=== PATIENT | female | born 1970 | race Caucasian/White ===

== ENCOUNTER 2022-08-28 21:01 | Emergency (ER) | payer OTHER, SELFPAY ==
[2022-08-28 21:07] VITALS: BP 181/96; PULSE 78; RESP 20; TEMP 36.6; O2SAT 97; BMI 39.8
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
--- NOTE | 2022-08-28 22:54 | DI.RAD.S_ITS ---
PROCEDURE: XR ELBOW RT MIN 3V INDICATIONS: Pain and can not straighten after fall TECHNIQUE: 3 views of the elbow were acquired. COMPARISON: None. FINDINGS: Bones: No fractures or dislocations. No suspicious bony lesions. Soft tissues: There is a moderate elbow joint effusion. No suspicious soft tissue calcifications. IMPRESSION: 1. No displaced fracture or dislocation. 2. Moderate joint effusion suspicious for an occult fracture. Dictated by: Kodi Meza M.D. on 08/29/2022 at 0:46 Approved by: Kodi Meza M.D. on 08/29/2022 at 0:47
--- NOTE | 2022-08-28 22:54 | DI.RAD.S_ITS ---
PROCEDURE: XR ELBOW LT MIN 3V INDICATIONS: Pain and can not straighten after fall TECHNIQUE: 3 views of the elbow were acquired. COMPARISON: None. FINDINGS: Bones: No displaced fractures or dislocations. No suspicious bony lesions. Soft tissues: There is a moderate elbow joint effusion. No suspicious soft tissue calcifications. IMPRESSION: 1. Moderate joint effusion suspicious for an occult fracture. Dictated by: Kodi Meza M.D. on 08/29/2022 at 0:45 Approved by: Kodi Meza M.D. on 08/29/2022 at 0:46
[2022-08-29 01:30] VITALS: BP 206/100; PULSE 72; RESP 18; O2SAT 99
--- NOTE | 2022-08-29 01:40 | PC.NURSE ---
Prior left arm otho glass removed to accomodate the small fractures bilateral elbows. Dr. Oviedo did ortho glass for bilateral arms from mid upper arm to fingers, tolerated well.
== END 2022-08-29 01:42 | disposition home or self-care (01) ==
PROVIDERS: Emergency Provider Emergency Medicine
DX: S42.402A Unspecified fracture of lower end of left humerus, initial encounter for closed fracture (principal); S42.401A Unspecified fracture of lower end of right humerus, initial encounter for closed fracture; S62.112A Displaced fracture of triquetrum [cuneiform] bone, left wrist, initial encounter for closed fracture; V00.141A Fall from scooter (nonmotorized), initial encounter
CPT/HCPCS: 29105; 73080; 73110; 99282; 99283